=== PATIENT | female | born 1960 | race Caucasian/White ===

== ENCOUNTER 2017-04-15 17:22 | Emergency (ER) | payer OTHER ==
[2017-04-15 17:35] VITALS: O2SAT 97
[2017-04-15] MEDS ORDERED: LORazepam 1 MG TAB ONE (19:26)
[2017-04-15] MEDS ORDERED: LORazepam 1 MG TAB PO ONE ×2 (19:27→19:37)
--- NOTE | 2017-04-15 19:40 | EDPHY ---
H & P Stated Complaint: anxiety HPI/ROS: Chief complaint: Anxiety attack History of present illness: This is a 56-year-old female who presents to the emergency depart with her ex- for an anxiety attack. Patient has a lifelong history of anxiety. This is a typical anxiety attack. She has been stressed all week. She believes she has been stressed because of her work week. She has been taking her home medications which include gabapentin but it is not controlling her symptoms. She denies physical illness or injury. She denies homicidal or suicidal ideation. Review of systems: A 10 point review of systems was obtained and other than described above was negative - Personal History Current Tetanus/Diphtheria Vaccine: Unsure Current Tetanus Diphtheria and Acellular Pertussis (TDAP): Unsure - Medical/Surgical History Hx Asthma: No Hx Chronic Respiratory Disease: No Hx Diabetes: No Hx Cardiac Disease: Yes Hx Renal Disease: No Hx Cirrhosis: No Hx Alcoholism: Yes Hx HIV/AIDS: No Hx Splenectomy or Spleen Trauma: No Other PMH: Depression, anxiety, HTN, hysterectomy, cholecystectomy. IBS in remission. 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 (No meds since second grade.). ETOH - Social History Smoking Status: Never smoked - Physical Exam Exam: General Appearance: Alert, crying uncontrollably. Eyes: Pupils equal and round no injection. Respiratory: Chest is non tender, lungs are clear to auscultation. Cardiac: regular rate and rhythm Gastrointestinal: Abdomen is soft and non tender, no masses, bowel sounds normal. Musculoskeletal: Neck is supple and non tender. Extremities have full range of motion and are non tender. Skin: No rashes or lesions. Neurological: Alert and oriented x4. Strength and sensation intact and symmetrical. Constitutional: Initial Vital Signs Temperature (C) 37 C 04/15/17 17:33 Heart Rate 110 H 04/15/17 17:33 Respiratory Rate 24 H 04/15/17 17:33 Blood Pressure 159/85 H 04/15/17 17:33 O2 Sat (%) 97 04/15/17 17:33 O2 Delivery Mode Room Air Allergies/Adverse Reactions: Penicillins Allergy (Unknown, Verified 04/15/17 17:30) Home Medications: Medication Instructions Recorded Lisinopril/Hydrochlorothiazide 1 tab PO DAILY 06/06/12 [Lisinopril-Hctz 20-25 mg Tab] Ranitidine HCl [Ranitidine HCl 150 150 mg PO DAILY PRN 06/06/ mg] hydrOXYzine HCL [Hydroxyzine HCl] 6.25 mg PO DAILY PRN 07/18/14 hydrOXYzine HCL [Hydroxyzine HCl] 25 mg PO HS PRN #15 tablet 07/20/14 GABAPENTIN 07/24/15 LORazepam [Ativan] 1 mg PO BID #10 tablet 04/15/17 Omeprazole 04/15/17 Medical Decision Making ED Course/Re-evaluation: Patient seen under the supervision of my primary supervising physician Dr. Delia Quinonez. Patient presents to the emergency department for an anxiety attack. She is nontoxic. I do not believe she is a threat to herself or others. She does not appear to be gravely disabled. I will treat her with Ativan. She does have a primary care doctor and I have asked to follow up with her for further evaluation and care. Return precautions are given. Differential Diagnosis: Included but not limited to anxiety, depression, no evidence of suicidal or homicidal ideation - Data Points Medications Given: Discontinued Medications Lorazepam (Ativan) 1 mg PO EDNOW ONE Stop: 04/15/17 19:28 Last Admin: 04/15/17 19:31 Dose: 1 mg Lorazepam (Ativan) 1 mg PO EDNOW ONE Stop: 04/15/17 19:38 Last Admin: 04/15/17 19:58 Dose: 1 mg Departure - Departure Disposition: Home, Routine, Self-Care Clinical Impression: Anxiety Condition: Good Instructions: Lorazepam (By mouth), Generalized Anxiety Disorder (ED) Additional Instructions: Follow-up with your primary care doctor tomorrow for recheck tomorrow If symptoms worsen or new symptoms develop return to the emergency room for recheck Referrals: Darlene Chong MD [Primary Care Provider] - As per Instructions Stand Alone Forms: Work Excuse Prescriptions: LORazepam [Ativan] 1 mg PO BID #10 tablet
[2017-04-15 20:04] VITALS: BP 143/78; PULSE 90; RESP 20; TEMP 98.6
== END 2017-04-15 20:05 | disposition home or self-care (01) ==
DX: F41.9 Anxiety disorder, unspecified (principal); I10 Essential (primary) hypertension

== ENCOUNTER 2017-04-17 18:14 | Emergency (ER) | payer OTHER ==
--- NOTE | 2017-04-17 18:21 | EDPHY ---
H & P Source: Patient Exam Limitations: Clinical condition, Intoxication - Medical/Surgical History Hx Asthma: No Hx Chronic Respiratory Disease: No Hx Diabetes: No Hx Cardiac Disease: Yes Hx Renal Disease: No Hx Cirrhosis: No Hx Alcoholism: Yes Hx HIV/AIDS: No Hx Splenectomy or Spleen Trauma: No Other PMH: Depression, anxiety, HTN, hysterectomy, cholecystectomy. IBS in remission. 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 (No meds since second grade.). ETOH - Social History Smoking Status: Never smoked Time Seen by Provider: 04/17/17 18:21 HPI/ROS: HPI: This is a 56-year-old female who presents with Chief Complaint: Intentional drug ingestion to end life Location:psych Quality: suicide attempt Duration: Today sometime Signs and Symptoms: no auditory and visual command hallucinations, + suicidal ideation with a plan, no homicidal ideation, no paranoia Timing: Acute on chronic Severity: Moderate to severe Context: Patient is brought in by [facility] on M1 hold for intentional ingestion of medications and alcohol today with intent to end her life. Patient has a long history of severe major depression and generalized anxiety disorder with social phobia. Patient has had multiple attempts of suicide in the past including ingestion of pills as well as cutting her forearms. She has spent time in inpatient psychiatric facility for the suicide attempt. Her significant other spent 3 days home with her from work and today returned to work. He left the patient at the house this morning when he went to work and called between 3 and 4:00 p.m. the patient answered and had mumbled erratic speech pattern. She told her significant other that she took too many pills to count and drink lots of alcohol today as she wanted to . To me she only Mets to taking 1 pill of gabapentin, 1 pill of Ativan, and drinking 2 cups of alcohol. Patient became combative during transport and EMS had to give patient IM Haldol. 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 (No medications since second grade.) ETOH Social history: In a relationship, unemployed CONSTITUTIONAL: Intoxicated, mumbling, untidy adult white female, smells heavily of alcohol, awake and alert, no obvious distress HEENT: Atraumatic and normocephalic, PERRL, EOMI. Tympanic membranes clear. Oropharynx clear, no exudate and moist pink mucosa. Airway patent. No lymphadenopathy. No meningismus. Cardiovascular: Normal S1/S2, regular rate, regular rhythm, without murmur rub or gallop. PULMONARY/CHEST: Symmetrical and nontender. Clear to auscultation bilaterally. Good air movement. No accessory muscle usage. ABDOMEN: Soft, nondistended, nontender, no rebound, no guarding, no peritoneal signs, no masses or organomegaly. No CVAT. EXTREMITIES: 2/2 pulses, strength 5/5, no deformities, no clubbing, no cyanosis or edema. NEUROLOGICAL: no focal neuro deficits. GCS 15. SKIN: Warm and dry, no erythema. no rash. Good capillary refill. PSYCH: Poor eye contact, + flight of ideas, somewhat organized thought process, poor insight and judgment, no auditory and visual command hallucinations, + suicidal ideation with a plan, no homicidal ideation, no paranoia (Julius,Terra) Constitutional: Initial Vital Signs Temperature (C) 36.8 C 04/17/17 18:14 Heart Rate 72 04/17/17 18:14 Respiratory Rate 16 04/17/17 18:14 Blood Pressure 113/64 04/17/17 18:14 O2 Sat (%) 96 04/17/17 18:14 O2 Delivery Mode Room Air Allergies/Adverse Reactions: Penicillins Allergy (Unknown, Verified 04/15/17 17:30) Home Medications: Medication Instructions Recorded Lisinopril/Hydrochlorothiazide 1 tab PO DAILY 06/06/12 [Lisinopril-Hctz 20-25 mg Tab] Ranitidine HCl [Ranitidine HCl 150 150 mg PO DAILY PRN 06/06/12 mg] hydrOXYzine HCL [Hydroxyzine HCl] 6.25 mg PO DAILY PRN 07/18/14 hydrOXYzine HCL [Hydroxyzine HCl] 25 mg PO HS PRN #15 tablet 07/20/14 GABAPENTIN 07/24/15 LORazepam [Ativan] 1 mg PO BID #10 tablet 04/15/17 Omeprazole 04/15/17 Medical Decision Making ED Course/Re-evaluation: 1835: Placed on M1 hold per [facility] upon arrival. I agree with this as patient is severely depressed and attempted to end her life. She is currently maintaining her airway and vital signs stable. Placed on suicide precaution. She is calm and cooperative at this time in no interventions have been ordered. Labs and UDS. 1600: Ethanol level 340. UDS positive for marijuana and benzodiazepine. 0020: ETOH 177 Breathalyzer End of shift. Signed over to Dr. Rainey pending mental health evaluation and final disposition. (Rhina Madrid) 0630AM no acute events overnight. Patient is still pending mental health evaluation due to elevated alcohol level. Signed over at 7:00 a.m. shift change to Dr. Tran. (Ganesh Rainey) Differential Diagnosis: Differential diagnosis includes but is not limited to severe functional and situational depression, generalized anxiety disorder, suicidal ideation, intoxication. (Rhina Madrid) Other Provider: I assumed care of this patient from Dr. Rainey at 7:00 a.m.. Breathalyzer shortly thereafter is 0.09. Nursing staff reported to me that she has become agitated and anxious. A dose of Tums and 1 mg Ativan p.o. ordered for her. She is awaiting sobriety and mental health evaluation. Patient underwent mental health evaluation. Her mental health hold was lifted by the psychiatrist on duty. Arrangements have been made for her follow-up. She was discharged from the emergency department. (Jennifer Tran) - Data Points Laboratory Results: Laboratory Results 04/17/17 18:22 04/17/17 18:22 Medications Given: Discontinued Medications Calcium Carbonate (Tums) 500 mg PO EDNOW ONE Stop: 04/18/17 07:39 Last Admin: 04/18/17 07:45 Dose: 500 mg Gabapentin (Neurontin) 400 mg PO EDNOW ONE Stop: 04/18/17 10:05 Last Admin: 04/18/17 10:09 Dose: 400 mg Lorazepam (Ativan) 1 mg PO EDNOW ONE Stop: 04/18/17 07:38 Last Admin: 04/18/17 07:45 Dose: 1 mg Lorazepam (Ativan) 1 mg PO EDNOW ONE Stop: 04/18/17 09:55 Last Admin: 04/18/17 09:58 Dose: 1 mg Departure - Departure Disposition: Home, Routine, Self-Care Clinical Impression: Suicide attempt by drug ingestion, Severe major depression with psychotic features, Alcohol intoxication Condition: Good Instructions: Depression (ED), Abuse of Alcohol (ED) Additional Instructions: Follow up as advised by the mental health evaluators. Referrals: Darlene Chong MD [Primary Care Provider] - As per Instructions Stand Alone Forms: Work Excuse
[2017-04-17 18:40] LABS: PLATELET COUNT 232 10^3/uL (150-400)
[2017-04-18 07:36] VITALS: TEMP 97.3
[2017-04-18] MEDS ORDERED: LORazepam 1 MG TAB PO ONE ×2 (07:37→09:54)
[2017-04-18] MEDS ORDERED: CALCIUM CARBONATE 500 MG CHEWABLE TAB PO ONE (07:38)
[2017-04-18] MEDS ORDERED: GABAPENTIN 100 MG CAP PO ONE (10:04)
[2017-04-18 11:42] VITALS: BP 115/82; PULSE 76; RESP 14; O2SAT 98
== END 2017-04-18 11:00 | disposition home or self-care (01) ==
LOC: EDUNIT#
DX: T42.6X2A Poisoning by other antiepileptic and sedative-hypnotic drugs, intentional self-harm, initial encounter (principal); T42.4X2A Poisoning by benzodiazepines, intentional self-harm, initial encounter; T51.92XA Toxic effect of unspecified alcohol, intentional self-harm, initial encounter; F32.3 Major depressive disorder, single episode, severe with psychotic features; F10.129 Alcohol abuse with intoxication, unspecified; I10 Essential (primary) hypertension
CPT/HCPCS: 80305; G0480